=== PATIENT | female | born 1960 | race Caucasian/White ===

== ENCOUNTER 2023-09-11 19:15 | Inpatient (IN) | payer OTHER ==
[~2023-09-11] VITALS: Ht 162.6 cm; Wt 95.7 kg
[2023-09-11 20:18] LABS: EOSINOPHILS # (AUTO) 0.3 K/uL (0.0-0.7); EOSINOPHILS % (AUTO) 1.4 % (0.0-6.0); LYMPHOCYTES # (AUTO) 1.5 K/uL (0.8-4.8); MEAN CORPUSCULAR HEMOGLOBIN 36 PG (26.0-33.0); MONOCYTES # (AUTO) 1.3 K/uL (0.1-1.30); NEUTROPHILS % (AUTO) 85.4 % (43.0-81.0)
[2023-09-11 20:25] LABS: BASOPHILS # (AUTO) 0.1 K/uL (0.0-0.2); BASOPHILS % (AUTO) 0.3 % (0.0-2.0); HEMATOCRIT 35 % (33-45); HEMOGLOBIN 11.7 g/dL (11.5-14.8); INR 1.2 (0.91-1.10); LYMPHOCYTES % (AUTO) 6.9 % (20.0-44.0); MEAN CORPUSCULAR HGB CONC 34 g/dl (31.0-36.0); MEAN CORPUSCULAR VOLUME 108 fL (82-100); PARTIAL THROMBOPLASTIN TIME 31.6 SEC (24.3-34.3); PLATELET COUNT (AUTO) 515 K/uL (150-450); PROTHROMBIN TIME 12.3 SECS (9.2-11.1); RED BLOOD CELL COUNT(AUTO) 3.24 MIL/uL (4.0-5.2); RED CELL DISTRIBUTION WIDTH 14.2 % (11.5-15.0); WHITE BLOOD COUNT (AUTO) 22.3 K/uL (4.3-11.0)
[2023-09-11 20:27] LABS: BILIRUBIN,TOTAL 2.7 mg/dL (0.2-1.0); CREATININE 0.6 mg/dL (0.6-1.3); POTASSIUM 3.1 mmol/L (3.5-5.1); TOTAL PROTEIN, SERUM 5.9 g/dL (6.4-8.2)
[2023-09-11 20:31] LABS: ALBUMIN 1.4 g/dL (3.4-5.0)
[2023-09-11] MEDS ORDERED: ZOLPIDEM TARTRATE 5 MG TABLET PO PRN (22:30)
[2023-09-11] MEDS ORDERED: ONDANSETRON HCL/PF 4 MG/2 ML VIAL IVP PRN (22:30)
[2023-09-11] MEDS ORDERED: MAGNESIUM HYDROXIDE 30 ML UDC PO PRN (22:30)
[2023-09-11] MEDS: SPIRONOLACTONE 25 MG TABLET PO ONE (22:30)
[2023-09-11] MEDS ORDERED: Z GUARD REMEDY 4 OZ OINT TP PRN (22:30)
[2023-09-11 23:30] VITALS: BP 118/69; TEMP 98.3; O2SAT 95
[2023-09-12] MEDS: PIPERACI/TAZO 3.375GM/D5W 50ML PB IV ONE ×2 (00:44→06:11)
[2023-09-12] MEDS: PIPERACILLIN /TAZOBACTAM 3.375 G in IV D5W 50 ML IV SCH ×2 (00:47→11:11)
[2023-09-12 07:00] VITALS: BP 127/80; TEMP 98.5; O2SAT 94
[2023-09-12 07:32] LABS: BASOPHILS # (AUTO) 0.1 K/uL (0.0-0.2); BASOPHILS % (AUTO) 0.5 % (0.0-2.0); EOSINOPHILS # (AUTO) 0.3 K/uL (0.0-0.7); EOSINOPHILS % (AUTO) 1.2 % (0.0-6.0); HEMATOCRIT 33 % (33-45); HEMOGLOBIN 10.9 g/dL (11.5-14.8); LYMPHOCYTES # (AUTO) 1.3 K/uL (0.8-4.8); LYMPHOCYTES % (AUTO) 6.1 % (20.0-44.0); MEAN CORPUSCULAR HEMOGLOBIN 36 PG (26.0-33.0); MEAN CORPUSCULAR HGB CONC 33 g/dl (31.0-36.0); MEAN CORPUSCULAR VOLUME 110 fL (82-100); MONOCYTES # (AUTO) 1.3 K/uL (0.1-1.30); MONOCYTES % (AUTO) 6.1 % (2.0-12.0); NEUTROPHILS # (AUTO) 17.8 K/uL (1.8-8.9); NEUTROPHILS % (AUTO) 86.1 % (43.0-81.0); PLATELET COUNT (AUTO) 478 K/uL (150-450); RED BLOOD CELL COUNT(AUTO) 3.01 MIL/uL (4.0-5.2); RED CELL DISTRIBUTION WIDTH 14.1 % (11.5-15.0); WHITE BLOOD COUNT (AUTO) 20.7 K/uL (4.3-11.0)
[2023-09-12 07:46] LABS: BILIRUBIN,TOTAL 2.7 mg/dL (0.2-1.0); CALCIUM, SERUM 7.8 mg/dL (8.5-10.1); CREATININE 0.6 mg/dL (0.6-1.3); TOTAL PROTEIN, SERUM 5.1 g/dL (6.4-8.2)
[2023-09-12 07:58] LABS: ALBUMIN 1.2 g/dL (3.4-5.0); POTASSIUM 2.8 mmol/L (3.5-5.1)
[2023-09-12] MEDS ORDERED: ACET325T53 PO (08:06)
[2023-09-12] MEDS ORDERED: MAGN400O6 PO (08:06)
[2023-09-12] MEDS ORDERED: THIA100T88 PO (08:06)
[2023-09-12] MEDS ORDERED: FOLI0.4T6 PO (08:06)
[2023-09-12] MEDS ORDERED: DOCU100T2 PO (08:06)
[2023-09-12] MEDS ORDERED: NA P133E RC (08:06)
[2023-09-12] MEDS ORDERED: ACET-637 PO (08:06)
[2023-09-12] MEDS ORDERED: BISA10SU11 RC (08:06)
[2023-09-12] MEDS ORDERED: FURO-144 PO (08:06)
[2023-09-12] MEDS ORDERED: SODI100037 PO (08:06)
[2023-09-12] MEDS ORDERED: HYDR25SU13 RC (08:06)
[2023-09-12] MEDS ORDERED: POTA10TA11 PO (08:06)
[2023-09-12] MEDS: PANTOPRAZOLE 40 MG VIAL IV SCH (08:45)
[2023-09-12] MEDS: POTASSIUM CL. PREMIX PERIPHER. 50 ML IV SCH (08:56)
[2023-09-12] MEDS: POTASSIUM CHLORIDE 20 MEQ TAB.PRT.SR PO ONE (08:56)
[2023-09-12] MEDS: POTASSIUM CHLORIDE 10 MEQ TABLET.SA PO ONE (11:11)
[2023-09-12 14:31] LABS: CREATININE 0.6 mg/dL (0.6-1.3); POTASSIUM 3.7 mmol/L (3.5-5.1)
[2023-09-12 15:38] LABS: PROTEIN, BODY FLUID 1.9 G/DL
[2023-09-12 16:00] VITALS: BP 113/64; TEMP 98.6; O2SAT 94
[2023-09-12 16:04] LABS: APPEARANCE,SPUN,BODY FLUID CLEAR (CLEAR)
[2023-09-12 16:05] LABS: MACROPHAGES, BODY FLUID 49; TOTAL VOLUME,BODY FLUID 1110 mL; WBC, BODY FLUID 129 /cu. mm. (0-200)
[2023-09-12 16:08] LABS: POLYNUCLEAR, BODY FLUID 38 % (0-25)
[2023-09-12] MEDS: MAG HYDROX/AL HYDROX/SIMETH 30 ML UDC PO PRN (19:23)
[2023-09-12 20:00] VITALS: BP 105/68; TEMP 98.4; O2SAT 91
[2023-09-13 06:45] LABS: BASOPHILS # (AUTO) 0.2 K/uL (0.0-0.2); BASOPHILS % (AUTO) 0.9 % (0.0-2.0); EOSINOPHILS # (AUTO) 0.3 K/uL (0.0-0.7); EOSINOPHILS % (AUTO) 1.5 % (0.0-6.0); HEMATOCRIT 36 % (33-45); HEMOGLOBIN 12.3 g/dL (11.5-14.8); LYMPHOCYTES # (AUTO) 1.5 K/uL (0.8-4.8); LYMPHOCYTES % (AUTO) 7.1 % (20.0-44.0); MEAN CORPUSCULAR HEMOGLOBIN 38 PG (26.0-33.0); MEAN CORPUSCULAR HGB CONC 34 g/dl (31.0-36.0); MEAN CORPUSCULAR VOLUME 110 fL (82-100); MONOCYTES # (AUTO) 1.4 K/uL (0.1-1.30); MONOCYTES % (AUTO) 6.2 % (2.0-12.0); NEUTROPHILS # (AUTO) 18.4 K/uL (1.8-8.9); NEUTROPHILS % (AUTO) 84.3 % (43.0-81.0); PLATELET COUNT (AUTO) 523 K/uL (150-450); RED BLOOD CELL COUNT(AUTO) 3.27 MIL/uL (4.0-5.2); RED CELL DISTRIBUTION WIDTH 14.2 % (11.5-15.0); WHITE BLOOD COUNT (AUTO) 21.9 K/uL (4.3-11.0)
[2023-09-13 06:53] LABS: BILIRUBIN,TOTAL 2.6 mg/dL (0.2-1.0); CALCIUM, SERUM 8.1 mg/dL (8.5-10.1); CREATININE 0.6 mg/dL (0.6-1.3); MAGNESIUM 2.2 mg/dL (1.8-2.4); POTASSIUM 3.2 mmol/L (3.5-5.1); TOTAL PROTEIN, SERUM 5.4 g/dL (6.4-8.2)
[2023-09-13 07:00] LABS: THYROID STIMULATING HORMONE 5.279 uIU/mL (0.358-3.74)
[2023-09-13 07:11] LABS: ALBUMIN 1.3 g/dL (3.4-5.0)
[2023-09-13 08:00] VITALS: BP 100/65; TEMP 97.7; O2SAT 93
[2023-09-13 08:15] LABS: URIC ACID 2.5 mg/dL (2.6-7.2)
[2023-09-13 08:43] LABS: PHOSPHORUS 3.7 mg/dL (2.5-4.9)
[2023-09-13] MEDS: FOLIC ACID 1 MG TABLET PO SCH (08:43)
[2023-09-13] MEDS: FUROSEMIDE 20 MG TABLET PO SCH (08:43)
[2023-09-13] MEDS: SPIRONOLACTONE 25 MG TABLET PO SCH (08:43)
[2023-09-13] MEDS: DOCUSATE SODIUM 100 MG CAPSULE PO SCH (08:43)
[2023-09-13] MEDS: THIAMINE HCL 100 MG TABLET PO SCH (08:43)
[2023-09-13] MEDS ORDERED: FUROSEMIDE 20 MG TABLET PO SCH (09:00)
[2023-09-13] MEDS ORDERED: SPIRONOLACTONE 25 MG TABLET PO SCH (09:00)
[2023-09-13] MEDS: POTASSIUM CHLORIDE 20 MEQ TAB.PRT.SR PO SCH (09:57)
[2023-09-13] MEDS: ENSURE ENLIVE 237 ML LIQUID (VANILLA) PO SCH (11:28)
[2023-09-13] MEDS: LACTULOSE 10 G/15 ML UDC (PYXIS) PO SCH (12:48)
[2023-09-13 16:00] VITALS: BP 98/61; TEMP 97.8; O2SAT 92
[2023-09-13 17:32] LABS: APPEARANCE,URINE SLIGHTLY CLOUDY (CLEAR); BILIRUBIN,URINE NEGATIVE (NEGATIVE); BLOOD, URINE NEGATIVE Ery/uL (NEGATIVE); COLOR,URINE YELLOW (YELLOW); KETONES,URINE NEGATIVE (NEGATIVE); LEUKOCYTE ESTERASE ,URINE NEGATIVE (NEGATIVE); NITRITE, URINE NEGATIVE (NEGATIVE); PROTEIN,URINE NEGATIVE (NEGATIVE); UGLUCOSE NEGATIVE (NEGATIVE); UROBILINOGEN,URINE 0.2 EU/dL (0.2)
[2023-09-13 20:00] VITALS: BP 103/62; TEMP 98.6; O2SAT 93
[2023-09-13 21:10] LABS: ADD URINE CULTURE NO; BACTERIA,URINE 1+ /HPF (None Seen); RBC,URINE 0-2 /HPF (0-2); WBC,URINE NONE SEEN /HPF (0-3)
[2023-09-14 07:00] VITALS: BP 114/67; TEMP 97.9; O2SAT 94
[2023-09-14 07:45] LABS: BASOPHILS # (AUTO) 0.2 K/uL (0.0-0.2); BASOPHILS % (AUTO) 0.9 % (0.0-2.0); EOSINOPHILS # (AUTO) 0.3 K/uL (0.0-0.7); EOSINOPHILS % (AUTO) 1.5 % (0.0-6.0); HEMATOCRIT 34 % (33-45); HEMOGLOBIN 11.8 g/dL (11.5-14.8); LYMPHOCYTES # (AUTO) 1.5 K/uL (0.8-4.8); LYMPHOCYTES % (AUTO) 6.7 % (20.0-44.0); MEAN CORPUSCULAR HEMOGLOBIN 38 PG (26.0-33.0); MEAN CORPUSCULAR HGB CONC 35 g/dl (31.0-36.0); MEAN CORPUSCULAR VOLUME 110 fL (82-100); MONOCYTES # (AUTO) 1.5 K/uL (0.1-1.30); MONOCYTES % (AUTO) 6.8 % (2.0-12.0); NEUTROPHILS # (AUTO) 18.8 K/uL (1.8-8.9); NEUTROPHILS % (AUTO) 84.1 % (43.0-81.0); PLATELET COUNT (AUTO) 477 K/uL (150-450); RED BLOOD CELL COUNT(AUTO) 3.13 MIL/uL (4.0-5.2); RED CELL DISTRIBUTION WIDTH 14.3 % (11.5-15.0); WHITE BLOOD COUNT (AUTO) 22.3 K/uL (4.3-11.0)
[2023-09-14 08:35] LABS: BILIRUBIN,TOTAL 2.3 mg/dL (0.2-1.0); CALCIUM, SERUM 7.8 mg/dL (8.5-10.1); CREATININE 0.6 mg/dL (0.6-1.3); POTASSIUM 3.1 mmol/L (3.5-5.1); TOTAL PROTEIN, SERUM 5.2 g/dL (6.4-8.2)
[2023-09-14 08:48] LABS: EOSINOPHILS % (MANUAL) 2 % (0-4); LYMPHOCYTES % (MANUAL) 6 % (16-48); MONOCYTES % (MANUAL) 4 % (0-11.0); NEUTROPHILS % (MANUAL) 88 (42-76)
[2023-09-14 08:49] LABS: ANISOCYTOSIS 1+; PLATELET ESTIMATE ADEQUATE
[2023-09-14 09:05] LABS: ALBUMIN 1.2 g/dL (3.4-5.0)
[2023-09-14] MEDS: LACTULOSE 10 G/15 ML UDC (PYXIS) PO SCH (12:32)
[2023-09-14 16:00] VITALS: BP 109/69; TEMP 98.2; O2SAT 92
[2023-09-14] MEDS: POTASSIUM CL. PREMIX PERIPHER. 50 ML IV SCH (16:16)
[2023-09-14] MEDS: CEFTRIAXONE 1 G in IV D5W 50 ML IV SCH (18:37)
[2023-09-14 22:47] LABS: URINE TOTAL PROTEIN 12.7 mg/dL (0-11.9)
[2023-09-15 06:05] VITALS: O2SAT 94
[2023-09-15 07:30] VITALS: BP 122/67; TEMP 98.1; O2SAT 97
[2023-09-15 07:34] LABS: BASOPHILS # (AUTO) 0.2 K/uL (0.0-0.2); BASOPHILS % (AUTO) 0.9 % (0.0-2.0); EOSINOPHILS # (AUTO) 0.4 K/uL (0.0-0.7); EOSINOPHILS % (AUTO) 1.7 % (0.0-6.0); HEMATOCRIT 36 % (33-45); HEMOGLOBIN 12.1 g/dL (11.5-14.8); LYMPHOCYTES # (AUTO) 1.8 K/uL (0.8-4.8); MEAN CORPUSCULAR HEMOGLOBIN 37 PG (26.0-33.0); MEAN CORPUSCULAR HGB CONC 34 g/dl (31.0-36.0); MEAN CORPUSCULAR VOLUME 110 fL (82-100); MONOCYTES # (AUTO) 1.4 K/uL (0.1-1.30); MONOCYTES % (AUTO) 6.2 % (2.0-12.0); NEUTROPHILS # (AUTO) 18.3 K/uL (1.8-8.9); NEUTROPHILS % (AUTO) 83.2 % (43.0-81.0); PLATELET COUNT (AUTO) 565 K/uL (150-450); RED BLOOD CELL COUNT(AUTO) 3.26 MIL/uL (4.0-5.2); RED CELL DISTRIBUTION WIDTH 14.3 % (11.5-15.0); WHITE BLOOD COUNT (AUTO) 21.9 K/uL (4.3-11.0)
[2023-09-15 07:59] LABS: CALCIUM, SERUM 7.8 mg/dL (8.5-10.1); CREATININE 0.6 mg/dL (0.6-1.3); MAGNESIUM 2.1 mg/dL (1.8-2.4); PHOSPHORUS 3.8 mg/dL (2.5-4.9)
[2023-09-15 08:04] LABS: C-REACTIVE PROTEIN 4.41 mg/dL (0.0-0.30)
[2023-09-15] MEDS: POTASSIUM CL. PREMIX PERIPHER. 50 ML IV SCH (09:49)
[2023-09-15 10:00] LABS: ANISOCYTOSIS 1+; BAND % (MANUAL) 1 % (0.0-5.0); EOSINOPHILS % (MANUAL) 2 % (0-4); LYMPHOCYTES % (MANUAL) 8 % (16-48); MONOCYTES % (MANUAL) 2 % (0-11.0); NEUTROPHILS % (MANUAL) 87 (42-76); PLATELET ESTIMATE ADEQUATE
[2023-09-15] MEDS ORDERED: IV NS 0.9% 250 ML IV ONE (10:18)
[2023-09-15] MEDS ORDERED: IOHEXOL-300 100 ML VIAL IV ONE (10:18)
[2023-09-15 15:28] VITALS: O2SAT 97
[2023-09-15 16:00] VITALS: BP 109/69; TEMP 97.9; O2SAT 94
[2023-09-15 20:00] VITALS: BP 110/61; TEMP 98.2; O2SAT 92
[2023-09-15 20:50] LABS: RHEUMATOID FACTOR SCREEN NEGATIVE (NEGATIVE)
[2023-09-16 04:00] VITALS: BP 112/64; TEMP 98.4; O2SAT 92
[2023-09-16 06:49] LABS: BASOPHILS # (AUTO) 0.1 K/uL (0.0-0.2); BASOPHILS % (AUTO) 0.6 % (0.0-2.0); EOSINOPHILS # (AUTO) 0.4 K/uL (0.0-0.7); EOSINOPHILS % (AUTO) 1.9 % (0.0-6.0); HEMATOCRIT 34 % (33-45); HEMOGLOBIN 11.4 g/dL (11.5-14.8); LYMPHOCYTES # (AUTO) 1.4 K/uL (0.8-4.8); LYMPHOCYTES % (AUTO) 6.3 % (20.0-44.0); MEAN CORPUSCULAR HEMOGLOBIN 37 PG (26.0-33.0); MEAN CORPUSCULAR HGB CONC 34 g/dl (31.0-36.0); MEAN CORPUSCULAR VOLUME 109 fL (82-100); MONOCYTES # (AUTO) 1.3 K/uL (0.1-1.30); MONOCYTES % (AUTO) 5.8 % (2.0-12.0); NEUTROPHILS # (AUTO) 18.5 K/uL (1.8-8.9); NEUTROPHILS % (AUTO) 85.4 % (43.0-81.0); PLATELET COUNT (AUTO) 497 K/uL (150-450); RED CELL DISTRIBUTION WIDTH 14.3 % (11.5-15.0); WHITE BLOOD COUNT (AUTO) 21.7 K/uL (4.3-11.0)
[2023-09-16 07:47] LABS: CALCIUM, SERUM 7.4 mg/dL (8.5-10.1); CREATININE 0.6 mg/dL (0.6-1.3); MAGNESIUM 1.9 mg/dL (1.8-2.4); PHOSPHORUS 3.4 mg/dL (2.5-4.9); POTASSIUM 3.4 mmol/L (3.5-5.1)
[2023-09-16 08:00] VITALS: BP 107/69; TEMP 98.9; O2SAT 96
[2023-09-16] MEDS: POTASSIUM CHLORIDE 20 MEQ TAB.PRT.SR PO SCH (10:10)
[2023-09-16 10:38] LABS: BILIRUBIN,DIRECT 1.5 mg/dL (0.0-0.2); BILIRUBIN,TOTAL 1.9 mg/dL (0.2-1.0); TOTAL PROTEIN, SERUM 5.3 g/dL (6.4-8.2)
[2023-09-16 10:55] LABS: ALBUMIN 1.3 g/dL (3.4-5.0)
[2023-09-16 11:11] LABS: *ANA ANTI-CENTROMERE B AB <0.2 AI (0.0-0.9); *ANA ANTI-DNA(DS) AB, QN <1 IU/mL (0-9); *ANA ANTI-JO-1 <0.2 AI (0.0-0.9); *ANA ANTICHROMATIN ANTIBODY <0.2 AI (0.0-0.9); *ANA RNP ANTIBODIES <0.2 AI (0.0-0.9); *ANA SJOGREN'S ANTI-SS-A <0.2 AI (0.0-0.9); *ANA SJOGREN'S ANTI-SS-B <0.2 AI (0.0-0.9); *ANAANTI-SCLERODERMA-70 AB <0.2 AI (0.0-0.9); *ANASMITH AB <0.2 AI (0.0-0.9)
[2023-09-16] MEDS ORDERED: ALBUMIN 25% 12.5 GM/50 ML BOTTLE IV ONE (12:45)
[2023-09-16] MEDS: ALBUMIN 25% 25 GM in PREMIX 1 EA IV ONE (13:12)
[2023-09-16 16:00] VITALS: BP 103/61; TEMP 97.6; O2SAT 100
[2023-09-16 20:00] VITALS: BP 113/65; TEMP 97.9; O2SAT 98
[2023-09-17 01:12] LABS: CANCER AG, 15-3 37.8 U/mL (0.0-25.0)
[2023-09-17 07:24] LABS: BASOPHILS # (AUTO) 0.2 K/uL (0.0-0.2); BASOPHILS % (AUTO) 0.8 % (0.0-2.0); EOSINOPHILS # (AUTO) 0.3 K/uL (0.0-0.7); EOSINOPHILS % (AUTO) 1.6 % (0.0-6.0); HEMATOCRIT 35 % (33-45); HEMOGLOBIN 11.8 g/dL (11.5-14.8); LYMPHOCYTES # (AUTO) 1.4 K/uL (0.8-4.8); LYMPHOCYTES % (AUTO) 7.1 % (20.0-44.0); MEAN CORPUSCULAR HEMOGLOBIN 37 PG (26.0-33.0); MEAN CORPUSCULAR HGB CONC 34 g/dl (31.0-36.0); MEAN CORPUSCULAR VOLUME 109 fL (82-100); MONOCYTES # (AUTO) 1.3 K/uL (0.1-1.30); MONOCYTES % (AUTO) 6.3 % (2.0-12.0); NEUTROPHILS # (AUTO) 17.2 K/uL (1.8-8.9); NEUTROPHILS % (AUTO) 84.2 % (43.0-81.0); PLATELET COUNT (AUTO) 463 K/uL (150-450); RED BLOOD CELL COUNT(AUTO) 3.19 MIL/uL (4.0-5.2); RED CELL DISTRIBUTION WIDTH 14.6 % (11.5-15.0); WHITE BLOOD COUNT (AUTO) 20.4 K/uL (4.3-11.0)
[2023-09-17 08:00] VITALS: BP 104/72; TEMP 98.6; O2SAT 94
[2023-09-17 08:00] LABS: ALBUMIN 1.6 g/dL (3.4-5.0); BILIRUBIN,TOTAL 1.9 mg/dL (0.2-1.0); CALCIUM, SERUM 8.1 mg/dL (8.5-10.1); CREATININE 0.6 mg/dL (0.6-1.3); MAGNESIUM 1.9 mg/dL (1.8-2.4); POTASSIUM 3.6 mmol/L (3.5-5.1); TOTAL PROTEIN, SERUM 5.2 g/dL (6.4-8.2)
[2023-09-17 08:04] VITALS: O2SAT 93
[2023-09-17 08:11] LABS: AFP, TUMOR MARKER 4.5 ng/mL (0.0-9.2); CARBOHYDRATE AG 19-9 <2 U/mL (0-35)
[2023-09-17] MEDS: ACETAMINOPHEN 325 MG TABLET PO PRN (10:05)
[2023-09-17 16:00] VITALS: BP 103/67; TEMP 98.4; O2SAT 94
[2023-09-17] MEDS ORDERED: GADOTERATE MEGLUMINE 10 MMOL/20 ML VIAL IV ONE (16:19)
[2023-09-17 20:00] VITALS: BP 124/68; TEMP 98.1; O2SAT 95
[2023-09-18 07:00] VITALS: BP 110/67; TEMP 97.5; O2SAT 95
[2023-09-18] MEDS ORDERED: SPIR100T5 PO (14:59)
[2023-09-18] MEDS ORDERED: THIA100T68 PO (14:59)
[2023-09-18] MEDS ORDERED: FOLI0.4T6 PO (14:59)
[2023-09-18] MEDS ORDERED: FURO-144 PO (14:59)
[2023-09-18] MEDS ORDERED: POTA8CAP20 PO (14:59)
[2023-09-18] MEDS ORDERED: LACT10SO58 PO (14:59)
== END 2023-09-18 17:10 | disposition home health service (06) | DRG 280 ==
LOC: ER 19:28 → MED 23:04
PROVIDERS: ADMIT Nurse Practitioner Acute Care; ATTEND Nurse Practitioner Acute Care
PROC: 0W9G3ZZ Drainage of Peritoneal Cavity, Percutaneous Approach (ICD-10-PCS; principal; 2023-09-12)
DX: K76.82 Hepatic encephalopathy (principal); K70.31 Alcoholic cirrhosis of liver with ascites; E43 Unspecified severe protein-calorie malnutrition; D68.9 Coagulation defect, unspecified; R65.10 Systemic inflammatory response syndrome (SIRS) of non-infectious origin without acute organ dysfunction; E72.20 Disorder of urea cycle metabolism, unspecified; E87.1 Hypo-osmolality and hyponatremia; E88.09 Other disorders of plasma-protein metabolism, not elsewhere classified; C50.919 Malignant neoplasm of unspecified site of unspecified female breast; R56.9 Unspecified convulsions; E87.6 Hypokalemia; D75.839 Thrombocytosis, unspecified; Y90.9 Presence of alcohol in blood, level not specified; I10 Essential (primary) hypertension; E87.70 Fluid overload, unspecified; R74.01 Elevation of levels of liver transaminase levels; T50.2X5A Adverse effect of carbonic-anhydrase inhibitors, benzothiadiazides and other diuretics, initial encounter; Y92.9 Unspecified place or not applicable; D64.9 Anemia, unspecified; D72.821 Monocytosis (symptomatic); K80.20 Calculus of gallbladder without cholecystitis without obstruction; K82.8 Other specified diseases of gallbladder; F10.20 Alcohol dependence, uncomplicated
CPT/HCPCS: 36415; 49083; 71045-TC; 71270-TC; 74178; 74183; 76700-TC; 80048-TC; 80053-TC; 80076-TC; 81001; 82105; 82140-TC; 82378; 82436-TC; 82570-TC; 82607-TC; 82728-TC; 83540-TC; 83615-TC; 83735-TC; 83935-TC; 84100-TC; 84133-TC; 84300-TC; 84439-TC; 84443-TC; 84550-TC; 85025-TC; 85730-TC; 86140-TC; 86225; 86235; 86300; 86301; 86304; 86431-TC; 87040-TC; 87081-TC; 87086-TC; 89051-TC; 94761-TC; 94799-TC; 97110-TC; 97116-TC; 97530-TC; A4216; A4223; A9575; C9113; G0378; J0696; J2543; J3480; J7050; J7060; P9047; Q9967